=== PATIENT | male | born 1950 | race Caucasian/White ===

== ENCOUNTER 2020-04-12 06:41 | Outpatient (REF) | payer MEDICARE, SELFPAY ==
[2020-04-12 11:53] LABS: Alanine Aminotransferase 15 U/L (0-40); Albumin Level 4.3 g/dL (3.5-5.0); Alkaline Phosphatase 92 U/L (39-117); Anion Gap 15 (12-20); Aspartate Amino Transferase 18 U/L (5-37); Bilirubin Total 0.5 mg/dL (0.0-1.0); Blood Urea Nitrogen 24 mg/dL (9-16); Calcium 9.1 mg/dL (8.4-10.2); Carbon Dioxide 27 mmol/L (22-29); Chloride 102 mmol/L (96-108); Cholesterol 117 mg/dL; Estimated Glomerular Filt Rate > 60; Glucose Fasting 206 mg/dL (60-99); HDL Cholesterol 43 mg/dL; LDL Cholesterol Calculated 56 mg/dl; Potassium 5.2 mmol/l (3.3-5.1); Sodium 139 mmol/L (135-145); Total Protein 7.2 g/dL (6.5-8.0); Triglycerides 93 mg/dL
[2020-04-12 11:58] LABS: Estimated Average Glucose 192 mg/dL; Hemoglobin A1c % 8.3 %
[2020-04-12 11:59] LABS: Creatinine Urine 80.66 mg/dL; Microalbum/Creatinine Ratio Ur 40.9 ug/mg cr
[2020-04-12 12:14] LABS: Prostate Specific Antigen Scr 2.47 ng/mL (<0.05-4.0); TSH reflex Free T4 1.56 mIU/mL (0.32-4.0)
== END 2020-04-12 06:42 | disposition home or self-care (01) ==
LOC: HO.HMGCLDS 06:41
PROVIDERS: PCP Nurse Practitioner Family; Visit Provider Nurse Practitioner Family
DX: Z00.00 Encounter for general adult medical examination without abnormal findings (principal); Z12.5 Encounter for screening for malignant neoplasm of prostate; E11.9 Type 2 diabetes mellitus without complications
CPT/HCPCS: 80053; 80061; 82043; 83036; 84153; 84443

== ENCOUNTER 2020-04-20 07:09 | Outpatient (REF) | payer MEDICARE, SELFPAY ==
[2020-04-20 11:47] LABS: Anion Gap 14 (12-20); Carbon Dioxide 26 mmol/L (22-29); Chloride 103 mmol/L (96-108); Potassium 4.9 mmol/l (3.3-5.1); Sodium 138 mmol/L (135-145)
== END 2020-04-20 07:10 | disposition home or self-care (01) ==
LOC: HO.HMGCLDS 07:09
PROVIDERS: PCP Nurse Practitioner Family; Visit Provider Nurse Practitioner Family
DX: E87.5 Hyperkalemia (principal)
CPT/HCPCS: 80051

== ENCOUNTER → 2020-04-28 15:03 | Outpatient (BNVA) | payer MEDICARE, SELFPAY | PROVIDERS: PCP Nurse Practitioner Family; Visit Provider Physician Assistant Medical | DX: Z76.89 Persons encountering health services in other specified circumstances (principal) | CPT/HCPCS: G0296 ==

== ENCOUNTER → 2020-05-01 13:43 | Outpatient (BNVA) | payer MEDICARE, SELFPAY | PROVIDERS: Visit Provider Physician Assistant | DX: Z13.89 Encounter for screening for other disorder (principal) | CPT/HCPCS: Q3014 ==

== ENCOUNTER 2020-05-06 09:43 | Emergency (ER) | payer MEDICARE, SELFPAY ==
[2020-05-06 10:29] VITALS: BP 158/75; PULSE 75; RESP 17; TEMP 36.3; O2SAT 98; BMI 27.1
--- NOTE | 2020-05-06 11:14 | ED.SKABFB ---
HPI - Skin/Abscess/Foreign Bdy General Chief complaint: Skin/Abscess/Foreign Body Stated complaint: abscess Time Seen by Provider: 05/06/20 11:14 Source: patient Mode of arrival: ambulatory Limitations: language barrier ([employer] used) History of Present Illness HPI narrative: Patient is a 69-year-old male with past medical history of diabetes, hypertension and a smoker complaining of 3 days of a cyst to his left upper back, states it is painful and it is not draining. He states he never has had one previous to this although our records show he had 1 on his neck, denies fevers. Related Data Home Medications Medication Instructions Recorded Confirmed blood sugar diagnostic #10 ea 04/11/20 04/11/20 flu vacc 2019-(63yr ml IM 04/11/20 05/01/20 up)-MF59C(PF) 60 mcg(15 mcgx4)/0.5 mL IM syringe ibuprofen 200 mg tablet 400 mg PO Q8H 04/11/20 04/11/20 ibuprofen 600 mg tablet 600 mg PO TID PRN 04/11/20 05/01/20 insulin NPH-regular 70-30 U-100 ml SUBCUT 04/11/20 05/01/20 insulin 100 unit/mL subcutaneous pen insulin syringe-needle U-100 1 mL #10 ea 04/11/20 05/01/20 30 gauge x 1/2 lancets 28 gauge #100 ea 04/11/20 05/01/20 pen needle, diabetic 32 gauge x #50 ea 04/11/20 04/11/20 5/32 pneumoc 13-nayely conj-dip cr(PF) 0.5 ml IM 04/11/20 04/11/20 mL IM syringe Previous Rx's Medication Instructions Recorded bismuth subsalicylate 262 mg 2 tab PO Q1H PRN 30 Days #90 tab 04/30/20 chewable tablet cyanocobalamin (vitamin B-12) 1,000 mcg PO DAILY 90 Days #90 tab 04/30/20 1,000 mcg tablet enalapril maleate 20 mg tablet 20 mg PO DAILY 90 Days #90 tab 04/30/20 famotidine 40 mg tablet 40 mg PO DAILY 90 Days #90 tab 04/30/20 levothyroxine 50 mcg tablet 50 mcg PO DAILY 90 Days #90 tab 04/30/20 loratadine 10 mg tablet 10 mg PO DAILY 90 Days #90 tab 04/30/20 metformin 1,000 mg tablet 1,000 mg PO BID 90 Days #180 tab 04/30/20 pravastatin 80 mg tablet 80 mg PO DAILY 90 Days #90 tab 04/30/20 prednisolone acetate 1 % eye 1 drp OPHTHALMIC (EYE) QID 30 Days 04/30/20 drops,suspension #15 ml bisacodyl 5 mg tablet,delayed 5 mg PO ONCE 1 Days #2 tab 05/01/20 release miralax See Rx Instructions PO ONCE #238 g 05/01/20 doxycycline hyclate 100 mg PO BID #14 cap 05/06/20 Allergies Allergy/AdvReac Type Severity Reaction Status Date / Time Penicillins [PENICILLINS] Allergy Unknown hives Verified 05/06/20 10:31 aspirin [ASPIRIN] AdvReac Unknown ABD PAIN Verified 05/06/20 10:31 Review of Systems Review of Systems: Yes all other systems are reviewed and are negative PMFSH Past Medical History Medical History Cornea transplant recipient Diabetes mellitus type 2 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 Mother Diabetes Brother Stomach cancer Social History Social History Alcohol intake: never Smoking Status: Current every day smoker Tobacco Type: Cigarette Packs Per Day: 0.5 Cigarettes Per Day: 10 Years Smoked: 10 years old Advance Directives: No Advance Directives Information Provided: No Physical Exam Vital Signs: Vital Signs: Last Vital Signs Temp 97.3 F 05/06/20 10:29 Pulse 75 05/06/20 10:29 Resp 17 05/06/20 10:29 BP 158/75 H 05/06/20 10:29 Pulse Ox 98 05/06/20 10:29 Body Mass Index 27.1 Const: General: cooperative, healthy appearing, comfortable, no acute distress and well developed Orientation/consciousness: patient oriented x3 HENMT: Head: Yes normal to inspection Face and sinus: Yes normal facial exam Eyes: General: appearance normal, both eyes and all related structures Skin: Other: Left upper back is a palpable, hard, erythematous 2cm x 2cm abscess, not fluctuant, does not appear able to be drained Neuro: General: patient oriented x3 Course Course Course Narrative: 69-year-old male past medical history of diabetes, hypertension and nicotine dependence with an abscess to his left upper back for 3 days. Does not appear to be able to be drained, will prescribe doxycycline and discharge Discharge Plan Discharge Clinical Impression: Abscess Patient Disposition: Home, Self-Care Instructions: Abscess (ED) Prescriptions: New doxycycline hyclate 100 mg capsule 100 mg PO BID Qty: 14 RF: 0 No Action bismuth subsalicylate [Bismatrol] 262 mg tablet,chewable 2 tab PO Q1H PRN (Reason: diarrhea) 30 Days Qty: 90 RF: 0 cyanocobalamin (vitamin B-12) 1,000 mcg tablet 1,000 mcg PO DAILY 90 Days Qty: 90 RF: 0 enalapril maleate 20 mg tablet 20 mg PO DAILY 90 Days Qty: 90 RF: 0 famotidine 40 mg tablet 40 mg PO DAILY 90 Days Qty: 90 RF: 0 levothyroxine 50 mcg tablet 50 mcg PO DAILY 90 Days Qty: 90 RF: 0 loratadine 10 mg tablet 10 mg PO DAILY 90 Days Qty: 90 RF: 0 metformin 1,000 mg tablet 1,000 mg PO BID 90 Days Qty: 180 RF: 0 pravastatin 80 mg tablet 80 mg PO DAILY 90 Days Qty: 90 RF: 0 prednisolone acetate 1 % drops,suspension 1 drp ophthalmic (eye) QID 30 Days Qty: 15 RF: 0 Novolin 70-30 FlexPen U-100 100 unit/mL (70-30) insulin pen subcut RF: 0 (DME) lancets 28 gauge misc See Rx Instructions ea topical BID Qty: 100 RF: 0 Fluad Quad 2020-21(65y up)(PF) 60 mcg (15 mcg x 4)/0.5 mL syringe IM RF: 0 Prevnar 13 (PF) 0.5 mL syringe IM RF: 0 (DME) FreeStyle Lite Strips Strip See Rx Instructions ea Not Applicable BID Qty: 10 RF: 0 (DME) pen needle, diabetic 32 gauge x 5/32 needle See Rx Instructions ea subcut .MEDSUPPLY Qty: 50 RF: 0 (DME) insulin syringe-needle U-100 1 mL 30 gauge x 1/2 syringe See Rx Instructions ea .ROUTE .MEDSUPPLY Qty: 10 RF: 0 ibuprofen 600 mg tablet 600 mg PO TID PRNRF: 0 ibuprofen [Advil] 200 mg tablet 400 mg PO Q8H RF: 0 miralax See Rx Instructions PO ONCE Qty: 238 RF: 0 bisacodyl [Dulcolax (bisacodyl)] 5 mg tablet,delayed release (DR/EC) 5 mg PO ONCE 1 Days Qty: 2 RF: 0 Referrals: Miguel Rajput, [facility] [Primary Care Provider] - 2 days (follow up if no resolution)
== END 2020-05-06 11:26 | disposition home or self-care (01) ==
PROVIDERS: Emergency Provider Emergency Medicine Emergency Medical Services; PCP Nurse Practitioner Family
DX: L02.212 Cutaneous abscess of back [any part, except buttock and flank] (principal); F17.210 Nicotine dependence, cigarettes, uncomplicated; E11.9 Type 2 diabetes mellitus without complications; I10 Essential (primary) hypertension; Z79.4 Long term (current) use of insulin
CPT/HCPCS: 99283; 99284

== ENCOUNTER 2020-06-08 12:53 | Outpatient (REF) | payer MEDICARE, SELFPAY ==
--- NOTE | 2020-06-08 12:55 | CT_ITS ---
EXAMINATION: CT CHEST SCREENING CLINICAL INFORMATION: Nicotine dependence COMPARISON: Chest x-ray 01/30/2020 TECHNIQUE: Multidetector volumetric CT imaging of the chest is performed without contrast using low dose technique. Additional 2D coronal and sagittal reformatted images and axial 3D maximum intensity projection (MIP) images are generated on the CT workstation. This CT examination was performed using dose optimization techniques as appropriate, variously including the following: *Automated exposure control *Adjustment of mA and/or kV according to patient size (this includes techniques or standardized protocols for targeted exams where dose is matched to indication/reason for exam; i.e. extremities or head) *Use of iterative reconstruction technique DLP: 209 mGy-cm FINDINGS: LUNGS: The lungs are well-expanded and clear of acute pneumonic process. There are small multiple pulmonary nodules. Former nodule left lower lobe, axial image 209/5, 3 mm nodule left lower lobe, axial image 193/5, 4 mm nodule at the confluence of the major minor fissure, axial image 215/5, most likely lymph node, 3 mm nodule right middle lobe, axial image 211/5, 5 mm nodule right middle lobe, axial image 229/5. No acute consolidation, ground-glass density or atelectasis seen. MEDIASTINUM: The thyroid lobes are asymmetric with the right lobe enlarged. The central trachea and the bronchi appear widely patent. Heart size and the great vessels are normal caliber. There are coronary artery calcifications present. There is no pericardial effusion. PLEURA: There is no pleural effusion. No pleural mass or thickening. AXILLA: Small shotty lymph nodes seen in the axilla. UPPER ABDOMEN: Visualized liver, spleen, pancreas and bilateral adrenal glands are unremarkable. OSSEOUS STRUCTURES: There is moderate ventral spondylosis mid dorsal spine. No lytic process. CT/CT lung screening IMPRESSION: No acute process. Multiple lung nodules, largest one measuring 5 mm in right middle lobe. ASSESSMENT: Lung-RADS category 2: Benign RECOMMENDATION: Low dose annual CT chest.
== END 2020-06-08 12:54 | disposition home or self-care (01) ==
LOC: HO.CT 12:53
PROVIDERS: PCP Nurse Practitioner Family; Visit Provider Physician Assistant Medical
DX: Z12.2 Encounter for screening for malignant neoplasm of respiratory organs (principal); F17.200 Nicotine dependence, unspecified, uncomplicated
CPT/HCPCS: 71271

== ENCOUNTER 2020-07-12 09:24 | Day surgery (SDC) | payer OTHER, SELFPAY ==
[2020-07-07 09:16] VITALS: BMI 25.5
--- NOTE | 2020-07-11 09:24 | HO.ANESPROP2 ---
Documented by User: Rachel Briscoeney 07/11/20 09:28 HPI - Anesthesia Eval Consult details Narrative: 69yo M for Upper Endoscopy and Colonoscopy [facility] Active Problems Active Problems: All Active Problems (Updated 07/07/20 @ 09:20 by Sweta Sparks) Physical exam (Acute) Diabetes (Acute) Screening PSA (prostate specific antigen) (Acute) Smoker (Acute) Hyperkalemia (Acute) Microalbuminuria (Acute) Encounter for screening colonoscopy (Acute) Acid reflux (Acute) Nicotine dependence, cigarettes, uncomplicated (Acute) Hypertension, essential, benign (Acute) Diabetes mellitus type 2 without retinopathy (Acute) Past Medical History Medical History CKD (chronic kidney disease) stage 3, GFR 30-59 ml/min Cornea transplant recipient Diabetes mellitus type 2 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 Mother Diabetes Brother Stomach cancer Surgical History Surgical History H/O hernia repair Hx of right knee surgery Social History Social History Alcohol intake: never Smoking Status: Current every day smoker Tobacco Type: Cigarette Packs Per Day: 1 Cigarettes Per Day: 20.0 Years Smoked: 58 Use of substances other than those prescribed or required for medical reasons: No Advance Directives Information Provided: No Meds Allergies Allergy/AdvReac Type Severity Reaction Status Date / Time Penicillins [PENICILLINS] Allergy Intermediate hives Verified 07/12/20 10:19 aspirin [ASPIRIN] AdvReac Intermediate ABD PAIN Verified 07/12/20 10:19 Home Medications Medication Instructions Recorded Confirmed Last Taken Type blood sugar diagnostic #10 ea 04/11/20 07/11/20 Unknown History flu vacc 2019-(63yr ml IM 04/11/20 07/11/20 Unknown History up)-MF59C(PF) 60 mcg(15 mcgx4)/0.5 mL IM syringe insulin syringe-needle U-100 1 mL #10 ea 04/11/20 07/11/20 Unknown History 30 gauge x 1/2 pneumoc 13-nayely conj-dip cr(PF) 0.5 ml IM 04/11/20 07/11/20 Unknown History mL IM syringe pen needle, diabetic 32 gauge x #50 ea 07/11/20 07/11/20 Unknown History 05/15 Exam Exam Date and Time: July 11, 2020923 Height,Weight and Vital Signs: Height 5 ft 4 in Weight 67.585 kg Pertinent Lab Results Pertinent Lab Results: Laboratory Tests 11/25/19 04/12/20 04/20/20 07:22 07:03 07:23 WBC 7.5 Hgb 12.6 L Hct 39.0 L Plt Count 233 Sodium 138 Potassium 4.9 Chloride 103 Carbon Dioxide 26 BUN 24 H Creatinine 1.16 Assessment and Plan Assessment Anesthesia Assessment: Chart Reviewed Documented by User: Sunita Gonzalez 07/12/20 10:26 [facility] Past Medical History Medical History CKD (chronic kidney disease) stage 3, GFR 30-59 ml/min Cornea transplant recipient Diabetes mellitus type 2 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 Mother Diabetes Brother Stomach cancer Surgical History Surgical History H/O hernia repair Hx of right knee surgery Social History Social History Alcohol intake: never Smoking Status: Current every day smoker Tobacco Type: Cigarette Packs Per Day: 1 Cigarettes Per Day: 20.0 Years Smoked: 58 Use of substances other than those prescribed or required for medical reasons: No Advance Directives Information Provided: No Meds Allergies Allergy/AdvReac Type Severity Reaction Status Date / Time Penicillins [PENICILLINS] Allergy Intermediate hives Verified 07/12/20 10:19 aspirin [ASPIRIN] AdvReac Intermediate ABD PAIN Verified 03/03/21 10:19 Home Medications Medication Instructions Recorded Confirmed Last Taken Type blood sugar diagnostic #10 ea 04/11/20 07/11/20 Unknown History flu vacc 2020-(63yr ml IM 04/11/20 07/11/20 Unknown History up)-MF59C(PF) 60 mcg(15 mcgx4)/0.5 mL IM syringe insulin syringe-needle U-100 1 mL #10 ea 04/11/20 07/11/20 Unknown History 30 gauge x 1/2 pneumoc 13-nayely conj-dip cr(PF) 0.5 ml IM 04/11/20 07/11/20 Unknown History mL IM syringe pen needle, diabetic 32 gauge x #50 ea 07/11/20 07/11/20 Unknown History 05/15 Exam Airway Mallampati Class: II TM Dist: >3cm Neck ROM: Full Denture: Upper and Lower Loose/Missing/Broken Teeth: Yes Heart: RRR Lungs: CTA Assessment and Plan Assessment Anesthesia Assessment: Anesthesia Plan Discussed and Chart Reviewed Final Anesthetic Review NPO: Yes ASA Class: III Final Preanesthetic Review: Meds/Allgs Chart Reviewed, Consent Obtained/Reviewed and Anes Risks/Benef Reviewed Patient Risk: Intermediate Procedure Risk: Intermediate Anesthetic Plan Anesthetic Plan: MAC: Disposition: Standard PACU
[2020-07-12 10:07] VITALS: BP 158/89; PULSE 79; RESP 18; TEMP 36.8; O2SAT 98
[2020-07-12 10:15] LABS: Glucose, Whole Blood 240 mg/dL (60-115)
--- NOTE | 2020-07-12 10:44 | MHC.SHP ---
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 Hypertension, essential, benign Neck abscess Nicotine dependence, cigarettes, uncomplicated Screening for colon cancer Thyroid disease) History of Previous Operations: Relevant previous surgery/procedure and date(s) (hernia repair, knee surgery) Allergies: Allergies Allergy/AdvReac Type Severity Reaction Status Date / Time Penicillins [PENICILLINS] Allergy Intermediate hives Verified 07/12/20 10:19 aspirin [ASPIRIN] AdvReac Intermediate ABD PAIN Verified 07/12/20 10:19 Review of Systems Sugical H&P ROS: Negative: Constitution, Cardiovascular, Respiratory, Neurological, Psychiatric, Hem-Onc, Allergic/Immunologic, Gastrointestinal, Genitourinary, Musculoskeletal, Integumentary, Endocrine and Eyes/Ears/Nose/Throat Exam Surgical H&P Exam: Normal: HEENT, Normal: Heart, Normal: Lungs, Normal: Extremities, Normal: Abdomen, Normal: Skin and Normal: Neurological Plan Diagnosis/Plan: Unchanged I have reviewed the history and physical and performed a pertinent physical examination on my patient. No changes have occurred unless specified.
--- NOTE | 2020-07-12 10:45 | PM.OP ---
Brief Operative Note Date of Service: 07/12/20 Pre-op diagnosis: fh stomahc ca, colon screening Post-op diagnosis: same Procedure: see op note Surgeon: Bridget Courtney MD Anesthesia: MAC Estimated blood loss (mL): 0 Condition: stable Disposition: PACU
--- NOTE | 2020-07-12 10:46 | P.OP_ITS ---
Operative Note Operative Note Date of Service: 07/12/20 Narrative: Operative Information Procedure Description: EGD, Colonoscopy FLEXIBLE TRANSORAL UPPER GASTROINTESTINAL ENDOSCOPY AND COLONOSCOPY PROCEDURE NOTE UPPER ENDOSCOPY Consent: Indications for the procedure and potential complications of bleeding, perforation, reaction to medications and missed diagnosis were discussed with the patient and informed consent was obtained. Instrument: Olympus GIF H 190 J mid size upper endoscope Monitoring: Vital signs and clinical assessment, continuous EKG monitoring, Pulse oximetry, Carbon Dioxide monitoring and blood pressure monitoring were done throughout the procedure. Procedure: The patient was placed in the left lateral decubitis position and pre-procedure medications were administered and a bite block was placed. The endoscope was inserted into the mouth and advanced under direct vision to the third part of duodenum. A careful inspection was made as the upper endoscope was withdrawn including a retroflexed examination of the proximal stomach; Findings and interventions are described below. Findings: Larynx:normal Esophagus: GE junction at 38 cm, diaphragm hiatus at 38 cm, normal mucosa, irregular z line bx taken Stomach: Few non bleeding AVm seen in stomach body. Biopsies were obtained to r/o h pylori. Grade 2 flap valve on retroflexed examination of the cardia. Duodenum: Normal bulb and descending duodenum, Intervention: Biopsies as noted above COLONOSCOPY Instrument: Olympus variable stiffness pediatric scope 190L Colonoscopy Monitoring: Vital signs and clinical assessment, continuous EKG monitoring, Pulse oximetry, Carbon Dioxide monitoring and blood pressure monitoring were done throughout the procedure. Colon withdrawal time was 10 minutes. Procedure: The patient was placed in the left lateral decubitis position and pre-procedure medications were administered. After a digital rectal examination of the ano-rectum, the video colonoscope was inserted into the rectum and advanced through the colon to the cecum/TI. The colonoscope was slowly withdrawn in a retrograde panoramic fashion and the colon mucosa was carefully examined including a retroflexed view of the rectum. Findings and interventions are described below. Procedure Difficulty:moderate, looping Findings: Terminal Ileum-normal Cecum: 8-9 mm sessile polyp noted, removed with cold snare, few tics seen Ascending Colon: normal Transverse Colon -normal Descending Colon:normal Sigmoid Colon: normal Rectum: Retroflexion normal Anorectum - normal Colon preparation: [place] Bowel Preparation Scale Right colon; 2 Transverse colon: 2 Left colon; 2 (0 = Unprepared colon segment with mucosa not seen due to solid stool that cannot be cleared. 1 = Portion of mucosa of the colon segment seen, but other areas of the colon segment not well seen due to staining, residual stool and/or opaque liquid. 2 = Minor amount of residual staining, small fragments of stool and/or opaque liquid, but mucosa of colon segment seen well. 3 = Entire mucosa of colon segment seen well with no residual staining, small fragments of stool or opaque liquid) Impression and Post Procedure Diagnosis: Endoscopy Findings: gastric AVM Colonoscopy Findings: diverticula polyp Plan: Await Pathology results Repeat Colonoscopy in 5 years if adenoma otherwise 10 yrs if health allows or earlier if clinically indicated High fiber diet leaflet Above findings were reviewed with the patient and relevant handouts were provided if indicated.
[2020-07-12 11:47] VITALS: BP 136/74; PULSE 73; RESP 20; TEMP 36.8; O2SAT 100
[2020-07-12 12:02] VITALS: BP 132/78; PULSE 78; RESP 20; TEMP 36.8; O2SAT 100
== END 2020-07-12 12:56 | disposition home or self-care (01) ==
PROVIDERS: PCP Nurse Practitioner Family; Visit Provider Internal Medicine Gastroenterology
PROC: (CPT 45385; principal; 2020-07-12 10:50)
DX: Z12.11 Encounter for screening for malignant neoplasm of colon (principal); D12.0 Benign neoplasm of cecum; K57.30 Diverticulosis of large intestine without perforation or abscess without bleeding; K21.9 Gastro-esophageal reflux disease without esophagitis; Z80.0 Family history of malignant neoplasm of digestive organs; K31.819 Angiodysplasia of stomach and duodenum without bleeding; K44.9 Diaphragmatic hernia without obstruction or gangrene; E11.22 Type 2 diabetes mellitus with diabetic chronic kidney disease; I12.9 Hypertensive chronic kidney disease with stage 1 through stage 4 chronic kidney disease, or unspecified chronic kidney disease; N18.30 Chronic kidney disease, stage 3 unspecified; E03.9 Hypothyroidism, unspecified; Z79.4 Long term (current) use of insulin; Z79.82 Long term (current) use of aspirin; Z79.899 Other long term (current) drug therapy; F17.210 Nicotine dependence, cigarettes, uncomplicated; Z88.0 Allergy status to penicillin
CPT/HCPCS: 45385; 43239; 82947; 88305; 88342; J2370

== ENCOUNTER → 2020-07-19 10:34 | Outpatient (BNVA) | payer OTHER, SELFPAY | PROVIDERS: PCP Nurse Practitioner Family; Visit Provider Physician Assistant | DX: Z13.89 Encounter for screening for other disorder (principal) | CPT/HCPCS: Q3014 ==

== ENCOUNTER → 2021-09-12 08:29 | Outpatient (RCR) | payer MEDICARE, SELFPAY | END | disposition home or self-care (01) | LOC: HO.PTCHIC 02-11 13:55 | PROVIDERS: PCP Internal Medicine; Visit Provider Internal Medicine | DX: M54.16 Radiculopathy, lumbar region (principal) | CPT/HCPCS: 97110 ==